=== PATIENT | female | born 1950 | race Caucasian/White ===

== ENCOUNTER 2016-07-16 20:48 | Emergency (ER) | payer MEDICARE ==
[2016-07-16 21:02] VITALS: BMI 35.3
[2016-07-16] MEDS ORDERED: SODIUM CHLORIDE 0.9% 10 ML FLUSH FLUSH PRN (21:24)
--- NOTE | 2016-07-16 21:27 | EDPRACDOC ---
- General Information Chief Complaint: Chest Pain Stated Complaint: CHEST PAIN Time Seen by Provider: 07/16/16 21:12 Information Source: Patient Mode of Arrival: Car Home Medications: Home Medications Allopurinol 300 mg PO DAILY 07/16/16 Amlodipine [Norvasc] 10 mg PO DAILY 07/16/16 Aspirin (Enteric Coated) [Ecotrin] 81 mg PO DAILY 07/16/16 HydrALAZINE (Cardiovascular) [Apresoline] 50 mg PO BID 07/16/16 Hydrochlorothiazide 25 mg PO DAILY 07/16/16 Losartan Potassium 100 mg PO DAILY 07/16/16 Metformin HCl 850 mg PO TID 07/16/16 Metoprolol Tartrate [Lopressor] 25 mg PO BID 07/16/16 Allergies/Adverse Reactions: Allergies Allergy/AdvReac Type Severity Reaction Status Date / Time codeine Allergy Rash-Genera Verified 07/16/16 21:02 lized - History of Present Illness Onset: 4am Chest Pain Location: Reports: Other (upper chest) Pain Radiation: Reports: Other (it radiates from side to side) Symptoms Occur: Reports: Gradually Cardiac Risk Factors: Reports: Hypertension, Diabetes. 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 Denies: [place] , CABG, Stent PE Risk Factors: Denies: Recent Trauma/Surgery, Immobilization Prehospital Care: Reports: Other (she has taken 3 baby asa in the setting of the pain in the past week) Pain Came On: Reports: Gradually Pain Status: Resolved Pain Description: Reports: Aching Pain Severity: Severe Pain Worsens With: Reports: Nothing Pain Improves With: Reports: Nothing Associated Signs and Symptoms: Denies: SOB, Palpitations, Abdominal Pain, Vomiting ED Past Medical History - History Reviewed Yes Nurses notes reviewed and agree except as marked - Patient Medical History Cardiac History: Reports: Hypertension, Hypercholesterolemia Psychological History: Denies: Depression Systemic History: Denies: Cancer - Social Medical History Smoking Status: Never smoker EDM Review of Systems - Review of Systems ROS Negative Except as Marked: Yes All systems reviewed and were negative except as marked - Physical Exam Constitutional: No apparent distress Oriented to: Time, Person, Place Last recorded Vital Signs: Last Vital Signs Temp 98.3 F 07/16/16 20:48 Pulse 102 07/16/16 21:18 Resp 20 07/16/16 21:18 BP 171/72 07/16/16 21:18 Pulse Ox 96 07/16/16 21:18 Oxygen Pulse Oxygen Saturation 96 O2 Device Room Air Oxygen Flow Rate Fraction of Inspired Oxygen ( FIO2) - HEENT Head: Normal ( normocephalic) Eye Exam: Normal (PERRL, EOMI, Sclera white) Oropharynx: Normal (Pharynx:Moist without exudate,Gums-no swelling) Tympanic Membrane: Normal ENT EAC: Normal TMJ: Normal Nose: No Symptoms Reported (septum midline) Neck: Normal (FROM, trachea at midline) - Respiratory/Cardiovascular Respiratory: Normal - CTA. negative: Accessory Muscle Use, Diminished, Rhonchi , Tachypnea Cardiovascular: Normal - GI Auscultation: Normal Palpation: Normal - Musculoskeletal Back: Normal. negative: Thoracic Step-off, Lumbar Step-off Extremities: Normal. negative: Edema - Integumentary Skin: Normal - Neurologic Memory Impaired: Normal Motor Function: Normal (Normal tone, Pulses 2+ No cyanosis or edema, FROM) Cranial Nerve: Normal (CN II-X11 intact sensation, strength 5/5) Cerebellar: Normal Mood Description: Normal Perception: Normal - Action Patient received Aspirin within last 24 hours?: Yes - Re-evaluation Re-evaluation 1 Re-evaluation Time: 22:53 pt denies current pain or the onset of pain in the er. her labs are negative and she has no pain. i believe that she can be managed in the op setting. she doesnt live alone and she has a pcp w whom she can follow. i encouraged her to call tomorrow to begin f/u and possible stress test. hr has diminished from arrival. - Results 07/16/16 21:18 07/16/16 21:18 - EKG EKG #1 EKG Time: 20:51 -: Yes EKG interpreted by me Rate: bpm: 101 [place]: LAD Rhythm: ST Block: None ST: Normal Comments: t inversion v1-v2 - Diagnostic Imaging Chest Image interpreted by: Radiologist (neg) Decision Time to Discharge: 22:55 - Departure Yes I personally saw and evaluated the patient. Disposition: Home Condition: Stable Final Diagnosis: Chest pain Qualifiers: Chest pain type: unspecified Qualified Code(s): R07.9 - Chest pain, unspecified Instructions: Chest Pain (ED), Chest Wall Pain (ED) Education/Counseling Given To: Patient, Family Member Education/Counseling Given Regarding: Diagnosis, Follow Up Referrals: None,No Provider [Primary Care Provider] - One Week Prescriptions: No Action Metoprolol Tartrate [Lopressor] 25 mg PO BID Metformin HCl 850 mg PO TID Losartan Potassium 100 mg PO DAILY Hydrochlorothiazide 25 mg PO DAILY Aspirin (Enteric Coated) [Ecotrin] 81 mg PO DAILY HydrALAZINE (Cardiovascular) [Apresoline] 50 mg PO BID Amlodipine [Norvasc] 10 mg PO DAILY Allopurinol 300 mg PO DAILY
[2016-07-16 21:38] LABS: AUTOMATED BASOPHIL 0.9 % (0-2); AUTOMATED EOSINOPHIL 4.6 % (0-5); AUTOMATED LYMPH 16.3 % (17-44); AUTOMATED MONOCYTE 9.5 % (3-10); AUTOMATED NEUTROPHIL 68.7 % (45-76)
[2016-07-16 21:44] LABS: PARTIAL THROMB. TIME 27.1 SEC (22-35)
--- NOTE | 2016-07-16 21:44 | DIRPT ---
CLINICAL DATA: Acute chest pain. EXAM: PORTABLE CHEST 1 VIEW COMPARISON: None. FINDINGS: The heart size and mediastinal contours are within normal limits. Both lungs are clear. No pneumothorax or pleural effusion is noted. The visualized skeletal structures are unremarkable. IMPRESSION: No acute cardiopulmonary abnormality seen. Electronically Signed By: Ishan Marquez Jr, M.D. On: 07/16/2016 21:42
[2016-07-16 21:46] LABS: BLOOD UREA NITROGEN 22 MG/DL (7-17); CALCIUM 10.1 MG/DL (8.4-10.2); CALCULATED OSMOLALITY 274 MOs/Kg (270-290); CHLORIDE 99 mEq/L (98-107); GLUCOSE 130 mg/dL (70-99); SODIUM LEVEL 140 mEq/L (137-146); TOTAL PROTEIN 8.5 G/DL (6.3-8.2)
[2016-07-16 22:26] VITALS: TEMP 98
[2016-07-16 23:14] VITALS: BP 120/58; PULSE 91
== END 2016-07-16 23:15 | disposition home or self-care (01) ==
LOC: ED 20:48
DX: R07.9 Chest pain, unspecified (principal)
CPT/HCPCS: 36415; 71010; 80053; 84484; 85025; 85610; 85730; 93005; 99284